=== PATIENT | male | born 1940 | race Caucasian/White ===

== ENCOUNTER 2024-10-18 15:26 | Outpatient (CLI) | payer MEDICARE ==
[~2024-10-18] VITALS: Ht 172.7 cm; Wt 117.0 kg
[2024-10-18 16:14] LABS: TOTAL HEMOGLOBIN 12.2 G/dl (13.5-17.5)
[2024-10-18] MEDS: albuterol 2.5 MG/3 ML nebule NEB ONE (16:37)
[2024-10-18 16:38] VITALS: PULSE 65; RESP 16; O2SAT 96
[2024-10-18 16:55] VITALS: PULSE 74; RESP 16
--- NOTE | 2024-10-19 16:21 | PROCEDURE NOTE - Respiratory ---
Procedure Note-Respiratory Providers to CC Copies To 1: GRETA BRASHER MD Procedure Name: This is a complete pulmonary function study dated October 18, 2024. Hemoglobin measurement was done as part of the study. Spirometry measurements: Both the forced vital capacity and the FEV1 are in the lower range of normal. The FEV1 ratio is normal. All of the measured flow rates are in the normal range. After inhaled bronchodilator was administered there is not much change in the flow volume loop. Lung volume measurements: The slow vital capacity measurement is in the normal range. Lung diffusion measurement: The DLCO measurement is normal. The KVO measurement is borderline elevated. The alveolar volume is slightly reduced. It is noted that the hemoglobin measurement is in the normal range. Airway resistance measurement: The airway resistance measurement is normal. Overall conclusion: Normal or very near normal pulmonary function study. We see no evidence for amiodarone pulmonary toxicity based on this study. We have no previous studies for comparison. If this patient remains on amiodarone therapy, it is recommended that repeat pulmonary function testing be performed in approximately one year. KATHY CALDERON MD Oct 19, 2024 16:21
== END 2024-10-18 23:59 | disposition home or self-care (01) ==
LOC: RT 15:26
PROVIDERS: ATTEND Specialist
DX: R06.02 Shortness of breath (principal); I48.91 Unspecified atrial fibrillation; Z79.899 Other long term (current) drug therapy
CPT/HCPCS: 85018; 94060; 94727; 94729; 94760